=== PATIENT | female | born 2005 | race Hispanic/Latino ===

== ENCOUNTER 2024-08-21 00:02 | Emergency (ER) | payer BC, SELFPAY ==
[2024-08-21 00:04] VITALS: BP 143/89
[2024-08-21 00:21] VITALS: BMI 24.6
--- NOTE | 2024-08-21 01:06 | ED.GENMED ---
History of Present Illness
General
Chief Complaint: Eye Problems
Source: patient
Exam Limitations: none
Time Seen by Provider: 08/21/24 00:44
Nursing documentation reviewed up to this point in time: agreed with
History of Present Illness
History of Present Illness:
This is a 18-year-old [employer] student who presents with right eye pain, irritation after she inadvertently placed a drop of nail glue in her right eye instead of eyedrops. This occurred around 8 PM.
She immediately flushed her eye and has continued to intermittently flush her eye but complains of continued pain, irritation and redness to her right eye.
She does not wear contacts nor corrective lenses.
She denies vision loss.
She is up-to-date with immunizations.
Past History
Past History
ED Past Medical History: None
ED Past Surgical History: None
Social History
Tobacco: Non-smoker
Alcohol: None
Drug: None
Personal: Single
Living: with roommate
Employment: Student
Family History
Family History: Other (Noncontributory)
Phy Exam
Physical Exam
Physical Exam:
GENERAL: 18-year-old female appears her stated age, bright and alert, pleasant, appears in no acute distress. 2 girlfriends are accompanying.
EYE: Right eye with moderate conjunctival injection, no chemosis. No ulcerations. Minimal tearing. Visual acuity grossly intact bilaterally. Pupils equal and reactive. Extraocular muscles intact. Anicteric. Right eye examined with fluorescein
stain and Kendall lamp reveals moderate focal rounded uptake inferior aspect of the conjunctiva as well is a very superficial corneal abrasion along the distal/inferior aspect of the cornea. No foreign body.
NECK: Supple, nontender, no meningismus, no significant adenopathy.
ENT: oral mucosa is moist. No rhinorrhea.
CARDIAC: Regular rate and rhythm. no murmur.
LUNGS: Clear breath sounds bilaterally, no acute respiratory distress, no wheezes/rales/rhonchi
NEUROLOGICAL: Alert and oriented x3, no focal neuro deficits. Gait is jaime and steady.
SKIN: Warm and dry, normal color, skin intact. No rash.
MUSCULOSKELETAL: No C/C/E. peripheral pulses are full and equal b/l. No palpable tenderness.
PSYCH: Normal and appropriate interaction.
Course
Orders/Labs/Results
Orders:
Orders
08/21/24 01:06
Gentamicin [Genoptic 0.3% Eye Drops] See Dose Instructions OPHTH NOW STA
Vital Signs
Initial and Last Documented VS:
Initial Vital Signs
Temp Pulse Resp BP Pulse Ox
98.3 F 72 18 143/89 98
08/21/24 00:04 08/21/24 00:04 08/21/24 00:04 08/21/24 00:04 08/21/24 00:04
Last Documented Vital Signs
Temp Pulse Resp BP Pulse Ox
98.3 F 72 18 143/89 98
08/21/24 00:04 08/21/24 00:04 08/21/24 00:04 08/21/24 00:04 08/21/24 00:04
MDM/Problems Addressed
Differential Diagnosis Includes:
Patient presents with acute chemical conjunctivitis right eye and exam reveals a superficial corneal abrasion distal/inferior aspect of the cornea.
Copious normal saline irrigation of right eye.
She is up-to-date with immunizations.
Will initiate a course of antibiotic ophthalmic drops for chemical conjunctivitis, corneal abrasion with plan for follow-up with ophthalmology versus health services at [facility].
*Pulse Oximetry
Patient hypoxic: no
*Critical Care Note
Total Time (30-74mins, 75-104mins- exclusive of procedures): Not Applicable
ED Attending Note
-
Portions of this chart may have been created with voice recognition software.� Occasional wrong word or��sound alike� substitutions may have occurred due to the inherent limitations of voice recognition software.
Discharge Plan
Departure
Patient Disposition: Home (Routine Discharge)
Date of Disposition: 08/21/24
Time of Disposition: 01:07
Patient with high blood pressure during this ER visit?: No
Condition: Good
Discharge Problem:
Acute chemical conjunctivitis of right eye, Corneal abrasion, right
Instructions: Corneal Abrasion (DC), How to Use Eye Drops, Conjunctivitis (Noninfectious Pinkeye)
Prescriptions:
New
gentamicin 0.3 % drops
1 drp ophthalmic (eye) QID Qty: 5 0RF
Referrals:
Marisa Parisi MD [Active] - Call in 1-3 days for appt
NONE,* [Family Provider] -
Interventions
Interventions:
*Risk Screen - Suicide Last Done: 08/21/24 00:04
*General Assessment Last Done: 08/21/24 00:04
*Neglect/Abuse Screening Last Done: 08/21/24 00:04
*ED- Fall Risk Assessment Last Done: 08/21/24 00:21
*ED COVID-19 Vaccine History Last Done: 08/21/24 00:04
Discharge Date and Time
Print Language: WELSH
[2024-08-21] MEDS: GENOPTIC 0.3% EYE DROPS 1 DROP OPHTH (01:10)
== END 2024-08-21 01:17 | disposition home or self-care (01) ==
LOC: EMR 00:02
PROVIDERS: EMERGENCY PHYSICIAN Emergency Medicine
DX: H10.211 Acute toxic conjunctivitis, right eye (principal); S05.01XA Injury of conjunctiva and corneal abrasion without foreign body, right eye, initial encounter; X58.XXXA Exposure to other specified factors, initial encounter
CPT/HCPCS: 99283